=== PATIENT | female | born 1975 | race Two or more races ===

== ENCOUNTER 2016-12-06 19:21 | Emergency (ER) | payer MEDICARE ==
[2016-12-06] MEDS ORDERED: CEFTRIAXONE 1 GM/D5W RTU 50 ML IV ONE (20:23)
--- NOTE | 2016-12-06 20:26 | ER Document Report ---
ED Medical Screen (RME) - General Chief Complaint: Urinary Problem Stated Complaint: URINARY SYMPTOMS Time Seen by Provider: 12/06/16 20:23 TRAVEL OUTSIDE OF THE [place] IN LAST 30 DAYS: No - HPI Notes: 12/06/16 20:23 With autoimmune hepatitis from traveling from [facility] not having urinary symptoms or hematuria concerned about urinary tract infection also concerned about possible effects of her autoimmune hepatitis states Liz has low platelets around 44-50. - Related Data Allergies/Adverse Reactions: No Known Allergies Allergy (Verified 12/06/16 19:38) Past Medical History - Past Medical History Cardiac Medical History: Denies: Hx Coronary Artery Disease, Hx Heart Attack, Hx Hypertension Pulmonary Medical History: Denies: Hx Asthma, Hx Bronchitis, Hx COPD, Hx Pneumonia Neurological Medical History: Denies: Hx Cerebrovascular Accident, Hx Seizures Renal/ Medical History: Denies: Hx Peritoneal Dialysis Musculoskeltal Medical History: Denies Hx Arthritis Past Surgical History: Denies: Hx Hysterectomy, Hx Pacemaker Review of Systems - Review of Systems Genitourinary: Hematuria Physical Exam - Vital signs Vitals: Temp Pulse Resp BP Pulse Ox 98.6 F 109 H 18 131/76 H 100 12/06/16 19:38 12/06/16 19:38 12/06/16 19:38 12/06/16 19:38 12/06/16 19:38 - Respiratory Respiratory status: No respiratory distress Chest status: Nontender Breath sounds: Normal Chest palpation: Normal Course - Vital Signs Vital signs: Temp Pulse Resp BP Pulse Ox 98.6 F 109 H 18 131/76 H 100 12/06/16 19:38 12/06/16 19:38 12/06/16 19:38 12/06/16 19:38 12/06/16 19:38
[2016-12-06 21:07] LABS: APPEARANCE,URINE CLOUDY; BILIRUBIN,URINE NEGATIVE (NEGATIVE); GLUCOSE, URINE >=500 mg/dL (NEGATIVE); KETONES,URINE NEGATIVE (NEGATIVE); LEUKOCYTE ESTERASE,URINE LARGE (NEGATIVE); NITRITE,URINE NEGATIVE (NEGATIVE); PROTEIN,URINE 100 mg/dL (NEGATIVE); URINE SPECIFIC GRAVITY 1.038
--- NOTE | 2016-12-06 21:11 | ER Document Report ---
ED General - General Chief Complaint: Urinary Problem Stated Complaint: URINARY SYMPTOMS Time Seen by Provider: 12/06/16 20:23 Mode of Arrival: Ambulatory Information source: Patient Notes: This is a 40-year-old female with a history of cirrhosis, autoimmune hepatitis who presents to the emergency room with dysuria and blood in the urine. Patient has had symptoms for approximately 1 day. She states that she was in the car for a long time and was holding a urine. She denies any fever. She denies any abdominal pain. She denies any mental status changes. She does have a history of thrombocytopenia with a platelet count that could be in the 30s-50s. TRAVEL OUTSIDE OF THE [place] IN LAST 30 DAYS: No - HPI Onset: Just prior to arrival Onset/Duration: Gradual Quality of pain: No pain Severity: None Pain Level: Denies Associated symptoms: denies: Chest pain, Fever, Shortness of breath Exacerbated by: Denies Relieved by: Denies Similar symptoms previously: Yes Recently seen / treated by doctor: No - Related Data Allergies/Adverse Reactions: No Known Allergies Allergy (Verified 12/06/16 19:38) Past Medical History - General Information source: Patient - Social History Smoking Status: Never Smoker Chew tobacco use (# tins/day): No Frequency of alcohol use: None Drug Abuse: None Lives with: Family Family History: Reviewed & Not Pertinent Patient has suicidal ideation: No Patient has homicidal ideation: No - Past Medical History Cardiac Medical History: Denies: Hx Coronary Artery Disease, Hx Heart Attack, Hx Hypertension Pulmonary Medical History: Denies: Hx Asthma, Hx Bronchitis, Hx COPD, Hx Pneumonia Neurological Medical History: Denies: Hx Cerebrovascular Accident, Hx Seizures Renal/ Medical History: Denies: Hx Peritoneal Dialysis Musculoskeltal Medical History: Denies Hx Arthritis Past Surgical History: Denies: Hx Hysterectomy, Hx Pacemaker - Immunizations Hx Diphtheria, Pertussis, Tetanus Vaccination: - ? Review of Systems - Review of Systems Constitutional: denies: Chills, Fever EENT: No symptoms reported Cardiovascular: No symptoms reported Respiratory: No symptoms reported Gastrointestinal: No symptoms reported Genitourinary: See HPI Female Genitourinary: See HPI Musculoskeletal: No symptoms reported Skin: No symptoms reported Hematologic/Lymphatic: No symptoms reported Neurological/Psychological: No symptoms reported Physical Exam - Vital signs Vitals: Temp Pulse Resp BP Pulse Ox 98.6 F 109 H 18 131/76 H 100 12/06/16 19:38 12/06/16 19:38 12/06/16 19:38 12/06/16 19:38 12/06/16 19:38 Notes: Physical exam: GENERAL: 40-year-old female, alert and oriented 3, no acute distress. HEAD: Atraumatic, normocephalic. EYES: Pupils equal round and reactive to light, extraocular movements intact, sclera anicteric, conjunctiva are normal. ENT: TMs normal, nares patent, oropharynx clear without exudates. Moist mucous membranes. NECK: Normal range of motion, supple without lymphadenopathy or JVD. LUNGS: Breath sounds clear to auscultation bilaterally and equal. No wheezes rales or rhonchi. HEART: Regular rate and rhythm without murmurs, rubs or gallops. ABDOMEN: Soft, normoactive bowel sounds. No tenderness to palpation. No guarding, no rebound. No masses appreciated. EXTREMITIES: Normal range of motion, no pitting or edema. No clubbing or cyanosis. NEUROLOGICAL: Cranial nerves II through XII grossly intact. Normal speech, normal gait. PSYCH: Normal mood, normal affect. SKIN: Warm, Dry, normal turgor, no rashes or lesions noted. Course - Vital Signs Vital signs: Temp Pulse Resp BP Pulse Ox 98.6 F 109 H 18 131/76 H 100 12/06/16 19:38 12/06/16 19:38 12/06/16 19:38 12/06/16 19:38 12/06/16 19:38 - Laboratory Result Diagrams: 12/06/16 20:45 12/06/16 20:45 Laboratory results interpreted by me: 12/06/16 12/06/16 12/06/16 20:20 20:45 20:45 RDW 15.0 H Plt Count 52 L Creatinine 0.45 L Glucose 294 H Urine Protein 100 H Urine Glucose (UA) >=500 H Urine Blood LARGE H Urine Urobilinogen 4.0 H Ur Leukocyte Esterase LARGE H Discharge - Discharge Clinical Impression: UTI (urinary tract infection) Qualifiers: Urinary tract infection type: acute cystitis Hematuria presence: with hematuria Qualified Code(s): N30.01 - Acute cystitis with hematuria Condition: Stable Disposition: HOME, SELF-CARE Instructions: Urinary Tract Infection ([facility]) Additional Instructions: You were given ceftriaxone in the emergency room. This antibiotic normally last approximately 24 hours. Your platelet count was 52,000 I placed a copy of your lab work and the discharge summary so you can bring it to your doctor when back in [place] for your appointment January 29. Recommendations: Rest, Drink plenty of fluids Continue your current medicines. Take the antibiotics as prescribed Return to the emergency room for any worsening discomfort, not tolerating fluids or your medicines or any concerns or getting worse Prescriptions: Cefdinir [Omnicef 300 mg Capsule] 1 cap PO BID #14 capsule
[2016-12-06 21:12] LABS: ABSOLUTE LYMPHOCYTES (AUTO) 0.7 10^3/uL (0.5-4.7); ABSOLUTE MONOCYTES (AUTO) 0.5 10^3/uL (0.1-1.4); ABSOLUTE NEUT (AUTO) 3.2 10^3/uL (1.7-8.2); BASOPHILS % (AUTO) 0.6 % (0-2); EOSINOPHILS % (AUTO) 1.1 % (0-6); HEMATOCRIT 38.2 % (36.0-47.0); HEMOGLOBIN 12.9 g/dL (12.0-15.5); HGB HCT DIFFERENCE 0.5; LYMPHOCYTES % (AUTO) 16.5 % (13-45); MEAN CORPUSCULAR HEMOGLOBIN 31.3 pg (27.0-33.4); MEAN CORPUSCULAR HGB CONC 33.8 g/dL (32.0-36.0); MEAN CORPUSCULAR VOLUME 93 fl (80-97); MONOCYTES % (AUTO) 10.4 % (3-13); RED BLOOD COUNT 4.12 10^6/uL (3.72-5.28); SEGMENTED NEUTROPHILS % (AUTO) 71.4 % (42-78); WHITE BLOOD COUNT 4.5 10^3/uL (4.0-10.5)
[2016-12-06 21:12] LABS: BACTERIA,URINE 1+ /HPF; RBC,URINE TOO NUMEROUS TO CNT /HPF; WBC,URINE 50-100 /HPF
[2016-12-06 21:28] LABS: ANION GAP 10 (5-19); BLOOD UREA NITROGEN 14 mg/dL (7-20); CALCIUM 8.7 mg/dL (8.4-10.2); CARBON DIOXIDE 25 mmol/L (22-30); CHLORIDE 104 mmol/L (98-107); CREATININE RESULT 0.45 mg/dL (0.52-1.25); GLUCOSE 294 mg/dL (75-110); POTASSIUM 4.1 mmol/L (3.6-5.0); SODIUM 138.9 mmol/L (137-145)
[2016-12-06 22:31] VITALS: BP 101/52
== END 2016-12-06 22:28 | disposition home or self-care (01) ==
LOC: ER 19:21
DX: N30.01 Acute cystitis with hematuria (principal); R39.198 Other difficulties with micturition
CPT/HCPCS: 99283; 36415; 87086; 85025; 87088; 80048; 81001; 87186; J0696